=== PATIENT | female | born 1945 | race Two or more races ===

== ENCOUNTER → 2020-03-27 | Outpatient (CLI) | payer OTHER | END | disposition home or self-care (01) | LOC: LAB 12:27 | PROVIDERS: ATTEND Orthopaedic Surgery | DX: I10 Essential (primary) hypertension (principal) ==

== ENCOUNTER 2021-02-18 09:07 | Outpatient (CLI) | payer OTHER | END 2021-02-18 09:22 | disposition home or self-care (01) | LOC: RAD 09:07 | PROVIDERS: ATTEND Internal Medicine Cardiovascular Disease | DX: M19.90 Unspecified osteoarthritis, unspecified site (principal) ==

== ENCOUNTER → 2021-06-26 09:48 | Outpatient (CLI) | payer OTHER | END | disposition home or self-care (01) | LOC: RX STUDY 09:30 | PROVIDERS: ATTEND Internal Medicine Cardiovascular Disease | DX: K21.9 Gastro-esophageal reflux disease without esophagitis (principal); R10.84 Generalized abdominal pain ==

== ENCOUNTER 2021-06-29 08:06 | Outpatient (CLI) | payer OTHER | END 2021-06-29 08:14 | disposition home or self-care (01) | LOC: NUCLEAR 08:06 | PROVIDERS: ATTEND Internal Medicine Cardiovascular Disease | DX: I10 Essential (primary) hypertension (principal) ==

== ENCOUNTER → 2024-06-14 09:44 | Outpatient (CLI) | payer OTHER | END | disposition home or self-care (01) | LOC: NUCLEAR 09:44 | PROVIDERS: ATTEND Internal Medicine Cardiovascular Disease | DX: I10 Essential (primary) hypertension (principal) ==